=== PATIENT | male | born 1995 | race Caucasian/White ===

== ENCOUNTER 2017-08-01 15:45 | Emergency (ER) | payer OTHER ==
[~2017-08-01] VITALS: Ht 190.5 cm; Wt 112.0 kg
[2017-08-01 17:40] VITALS: BP 137/87
== END 2017-08-01 17:05 | disposition home or self-care (01) ==
LOC: EME 15:45
DX: S50.812A Abrasion of left forearm, initial encounter (principal); X78.8XXA Intentional self-harm by other sharp object, initial encounter; F43.23 Adjustment disorder with mixed anxiety and depressed mood; F43.9 Reaction to severe stress, unspecified; F31.9 Bipolar disorder, unspecified; F17.200 Nicotine dependence, unspecified, uncomplicated
CPT/HCPCS: 90839; 99281; 99285